=== PATIENT | male | born 1965 | race Caucasian/White ===

== ENCOUNTER 2018-06-11 19:11 | Emergency (ER) | payer SELFPAY ==
[2018-06-11 19:17] VITALS: RESP 18; TEMP 99.7; O2SAT 99
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
[2018-06-11 21:20] VITALS: BP 150/90; PULSE 64
== END 2018-06-11 21:21 | disposition home or self-care (01) ==
LOC: H.ER 19:11
DX: H72.92 Unspecified perforation of tympanic membrane, left ear (principal)